=== PATIENT | male | born 1975 | race African-American/Black ===

== ENCOUNTER 2024-12-12 18:10 | Inpatient (IN) | payer MEDICAID ==
[~2024-12-12] VITALS: Ht 175.3 cm; Wt 296.6 kg
[~2024-12-12 18:10] MED LIST: ASPI-1497 PO; COR3 PO; FURO-151 PO; METO50TA95 PO; POTA-203 PO
[2024-12-12 18:18] VITALS: O2SAT 99
[2024-12-12] MEDS ORDERED: SODIUM CHLORIDE 0.9% (SEPSIS BOLUS) IV ONE (18:45)
[2024-12-12] MEDS: SODIUM CHLORIDE 0.9% 1,000 ML IV ONE (19:00)
[2024-12-12] MEDS: PIPERACILLIN/TAZO 3.375G/50ML 50 ML IV ONE (19:10)
[2024-12-12 19:12] LABS: BASOPHILS % 0.5 % (0.0-2.0); EOSINOPHILS % 0.2 % (0.0-5.0); HEMATOCRIT. 39.9 % (42.0-52.0); HEMOGLOBIN. 12.8 g/dL (14.0-18.0); LYMPHOCYTES % 7.8 % (20.0-50.0); MEAN PLATELET VOLUME 8.5 fl (7.4-10.4); MONOCYTES % 3.2 % (2.0-8.0); NEUTROPHILS % 88.3 % (40.0-76.0); PLATELET 187 x1000/uL (130-400); RED BLOOD CELL COUNT 4.51 mill/uL (4.7-6.1); RED CELL DISTRIBUTION WIDTH 15.0 % (11.6-14.6)
[2024-12-12 19:21] LABS: INR 1.5
[2024-12-12 19:33] LABS: CREATININE 1.8 mg/dL (0.6-1.3)
[2024-12-12 19:34] LABS: UREA NITROGEN BLOOD 13 mg/dL (9-23)
[2024-12-12 19:35] LABS: ASPARTATE AMINOTRANSFERASE 42 IU/L (<34)
[2024-12-12 19:36] LABS: BILIRUBIN DIRECT 0.8 mg/dL (<=3.0); BILIRUBIN TOTAL 1.9 mg/dL (0.1-1.0); PROTEIN TOTAL 7.4 g/dL (6.0-8.3)
[2024-12-12] MEDS: VANCOMYCIN 1G PREMIX 200 ML IV ONE (19:54)
[2024-12-12 21:17] LABS: CLARITY URINE TURBID (CLEAR); COLOR URINE ORANGE (YELLOW); GLUCOSE URINE NEGATIVE (NEGATIVE); KETONES URINE TRACE (NEGATIVE); LEUKOCYTE ESTERASE URINE 2+ (NEGATIVE); NITRITE URINE POSITIVE (NEGATIVE); OCCULT BLOOD URINE TRACE (NEGATIVE); PH URINE 5.0 (4.5-8.0); PROTEIN URINE 2+ (NEGATIVE); SPECIFIC GRAVITY URINE 1.031 (1.005-1.030); UROBILINOGEN URINE 2.0 E.U./dL (0.2-1.0)
[2024-12-12 21:37] LABS: BACTERIA URINE 4+; RBC URINE 0-2 /hpf (0-2); SQUAMOUS EPITHELIAL CELL URINE 1+ /lpf (RARE/1+); WBC URINE 25-50 /hpf (0-2)
[2024-12-12] MEDS ORDERED: DOCUSATE SODIUM 100MG CAPSULE PO PRN (22:30)
[2024-12-12] MEDS ORDERED: CLONIDINE 0.1MG TABLET PO PRN (22:30)
[2024-12-12] MEDS ORDERED: MAGNESIUM/ALUMINUM HYDROXIDE/SIMETHICONE 30ML UDC PO PRN (22:30)
[2024-12-12] MEDS ORDERED: ONDANSETRON HCL 4MG/2ML INJ IV PRN (22:30)
[2024-12-12] MEDS ORDERED: IPRATROPIUM/ALBUTEROL 0.5-3(2.5)MG/3ML NEB HHN PRN (22:30)
[2024-12-12] MEDS ORDERED: GUAIFENESIN 200MG/10ML SUGAR FREE UDC PO PRN (22:30)
[2024-12-12] MEDS ORDERED: ACETAMINOPHEN 325MG TABLET PO PRN (22:30)
[2024-12-12 23:42] VITALS: BP 145/73; PULSE 101; RESP 15; TEMP 36.696
[2024-12-13] VITALS (17 sets, daily range): BP systolic 107–135; BP diastolic 50–95; PULSE 92–112; RESP 14–30; TEMP 37.1–38.1; O2SAT 88–100
[2024-12-13] MEDS: VANCOMYCIN 1.75GM PMX (XELLIA) 350 ML IV NR (01:39)
[2024-12-13 01:49] LABS: BG BASE EXCESS 3.7 mmol/L (-2.0-3.0); BG CARBOXYHEMOGLOBIN 1.6 % (0.5-1.5); BG DEOXYHEMOGLOBIN 6.5 % (0.0-5.0); BG FRACTION INSPIRED OXYGEN 21; BG HCO3 ACT 28.6 mmol/L (21.0-28.0); BG METHEMOGLOBIN 0.3 % (0.5-1.5); BG OXYGEN SATURATION 93.4 % (94.0-98.0); BG OXYHEMOGLOBIN 91.6 % (94.0-98.0); BG PCO2 44.3 mmHg (35.0-48.0); BG PH 7.428 (7.350-7.450); BG PO2 66.2 mmHg (83.0-108.0); BG SAMPLE SITE LEFT RADIAL; BG TIDAL VOLUME(mL) 875.0 mL; BG TOTAL HEMOGLOBIN 14.8 g/dL (13.5-17.5); BG TOTAL RESPIRATORY RATE 26 b/min
[2024-12-13 01:56] LABS: BG VENT MODE HOME VENT
[2024-12-13 04:41] LABS: HEMATOCRIT. 34.7 % (42.0-52.0); HEMOGLOBIN. 11.4 g/dL (14.0-18.0); MEAN PLATELET VOLUME 8.4 fl (7.4-10.4); PLATELET 152 x1000/uL (130-400); RED BLOOD CELL COUNT 3.99 mill/uL (4.7-6.1); RED CELL DISTRIBUTION WIDTH 14.8 % (11.6-14.6)
[2024-12-13 04:56] LABS: CREATININE 1.3 mg/dL (0.6-1.3); TRIGLYCERIDE 154 mg/dL (0-150); UREA NITROGEN BLOOD 14 mg/dL (9-23)
[2024-12-13 04:57] LABS: LDL CHOLESTEROL 79 mg/dL (5-100)
[2024-12-13] MEDS: PIPERACILLIN/TAZO 3.375G/50ML 50 ML IV SCH (05:52)
[2024-12-13] MEDS ORDERED: VANCOMYCIN 1.25GM/250ML 250 ML IV SCH (09:00)
[2024-12-13] MEDS: FAMOTIDINE 20MG/2ML VIAL IV SCH (10:01)
[2024-12-13] MEDS: FUROSEMIDE 100MG/10ML VIAL IVP SCH (10:01)
[2024-12-13] MEDS: POTASSIUM CHLORIDE 20MEQ TABLET SR PO NR (10:01)
[2024-12-13] MEDS: CARVEDILOL 3.125 MG TABLET PO SCH (10:02)
[2024-12-13] MEDS: ASPIRIN 81MG EC TABLET PO SCH (10:02)
[2024-12-13 13:53] LABS: VITAMIN B12 SERUM 478 pg/mL (211-911)
[2024-12-13] MEDS: ACETAMINOPHEN 325MG TABLET PO PRN (13:59)
[2024-12-13 14:16] LABS: BAND% 27.0 % (1.0-6.0); EOSINOPHILS % MANUAL 2.0 % (0.0-5.0); LYMPHOCYTES % MANUAL 9.0 % (20.0-50.0); MONOCYTES % MANUAL 3.0 % (2.0-8.0); NEUTROPHILS % MANUAL 59.0 % (45.0-75.0); PLATELET ESTIMATE NORMAL
[2024-12-13] MEDS: VANCOMYCIN 1.25GM/250ML 250 ML IV SCH ×2 (14:49→21:42)
[2024-12-13] MEDS: KETOROLAC 15MG/ML VIAL IV PRN (18:59)
[2024-12-14] VITALS (13 sets, daily range): BP systolic 94–135; BP diastolic 52–85; PULSE 85–102; RESP 12–34; TEMP 36.1–37.1; O2SAT 93–98
[2024-12-14] MEDS ORDERED: LIDOCAINE HCL 1% 10 MG/ML 10ML VIAL ONE ×2 (07:52→08:24)
[2024-12-14 10:59] LABS: BASOPHILS % 0.2 % (0.0-2.0); EOSINOPHILS % 1.8 % (0.0-5.0); HEMATOCRIT. 31.3 % (42.0-52.0); HEMOGLOBIN. 10.3 g/dL (14.0-18.0); LYMPHOCYTES % 12.8 % (20.0-50.0); MEAN PLATELET VOLUME 8.7 fl (7.4-10.4); MONOCYTES % 8.8 % (2.0-8.0); NEUTROPHILS % 76.4 % (40.0-76.0); PLATELET 161 x1000/uL (130-400); RED BLOOD CELL COUNT 3.63 mill/uL (4.7-6.1); RED CELL DISTRIBUTION WIDTH 14.8 % (11.6-14.6)
[2024-12-14 11:09] LABS: CREATININE 1.0 mg/dL (0.6-1.3); TRIGLYCERIDE 185 mg/dL (0-150); UREA NITROGEN BLOOD 15 mg/dL (9-23)
[2024-12-14 11:10] LABS: LDL CHOLESTEROL 82 mg/dL (5-100)
[2024-12-14 11:14] LABS: T4 FREE 1.07 ng/dL (0.89-1.76)
[2024-12-14] MEDS ORDERED: IBUPROFEN 800MG TABLET PO PRN (15:15)
[2024-12-14] MEDS ORDERED: NALOXONE HCL 0.4MG/ML VIAL IV PRN (15:45)
[2024-12-14] MEDS: HYDROCODONE/ACETAMINOPHEN 7.5/325MG TABLET PO PRN (17:04)
[2024-12-14 17:13] LABS: CREATINE KINASE MB FRACTION < 0.5 ng/mL (0.5-3.6); TROPONIN I HIGH SENSITIVITY 8 ng/L (3.0-53)
[2024-12-14] MEDS: ENOXAPARIN 40MG/0.4ML SYR SUBCUT SCH (21:30)
[2024-12-15] VITALS (18 sets, daily range): BP systolic 115–178; BP diastolic 57–80; PULSE 70–94; RESP 9–31; TEMP 36.3–37.7; O2SAT 91–96
[2024-12-15 00:27] LABS: CREATINE KINASE MB FRACTION 0.5 ng/mL (0.5-3.6); TROPONIN I HIGH SENSITIVITY 8.0 ng/L (3.0-53)
[2024-12-15 06:55] LABS: CREATINE KINASE MB FRACTION 0.6 ng/mL (0.5-3.6)
[2024-12-15 06:56] LABS: CREATININE 1.0 mg/dL (0.6-1.3); TROPONIN I HIGH SENSITIVITY 8 ng/L (3.0-53); UREA NITROGEN BLOOD 13 mg/dL (9-23)
[2024-12-15 06:58] LABS: PHOSPHORUS 3.3 mg/dL (2.5-4.9)
[2024-12-15 09:07] LABS: FOLATE HEMATOCRIT 36.1 % (37.5-51.0)
[2024-12-15] MEDS: FUROSEMIDE 40MG/4ML VIAL IVP SCH (09:23)
[2024-12-15] MEDS ORDERED: LEVO-65 MT (16:49)
[2024-12-16 09:09] LABS: FOLATE HEMOLYSATE 248.0 ng/mL (Not Estab.); FOLATE RBC 687 ng/mL (>498)
== END 2024-12-15 23:58 | disposition home or self-care (01) | DRG 720 ==
LOC: ER 18:10 → 5EST 21:23 → EDBEDREQTM 21:30 → EDBEDREQ 21:30 → ENRESERV 22:11
PROVIDERS: ADMIT Internal Medicine; ATTEND Internal Medicine
PROC: 5A09357 Assistance with Respiratory Ventilation, Less than 24 Consecutive Hours, Continuous Positive Airway Pressure (ICD-10-PCS; 2024-12-12)
PROC: 5A1935Z Respiratory Ventilation, Less than 24 Consecutive Hours (ICD-10-PCS; principal; 2024-12-13)
PROC: 5A09357 Assistance with Respiratory Ventilation, Less than 24 Consecutive Hours, Continuous Positive Airway Pressure (ICD-10-PCS; 2024-12-13)
PROC: 5A1945Z Respiratory Ventilation, 24-96 Consecutive Hours (ICD-10-PCS; 2024-12-14)
PROC: 05H533Z Insertion of Infusion Device into Right Subclavian Vein, Percutaneous Approach (ICD-10-PCS; 2024-12-14)
PROC: B546ZZA Ultrasonography of Right Subclavian Vein, Guidance (ICD-10-PCS; 2024-12-14)
DX: A41.9 Sepsis, unspecified organism (principal); Z99.11 Dependence on respirator [ventilator] status; Z93.0 Tracheostomy status; I13.0 Hypertensive heart and chronic kidney disease with heart failure and stage 1 through stage 4 chronic kidney disease, or unspecified chronic kidney disease; I50.9 Heart failure, unspecified; J96.11 Chronic respiratory failure with hypoxia; E66.01 Morbid (severe) obesity due to excess calories; D64.9 Anemia, unspecified; G47.33 Obstructive sleep apnea (adult) (pediatric); N39.0 Urinary tract infection, site not specified; N18.9 Chronic kidney disease, unspecified; L03.115 Cellulitis of right lower limb; N17.9 Acute kidney failure, unspecified; J18.9 Pneumonia, unspecified organism; J44.0 Chronic obstructive pulmonary disease with (acute) lower respiratory infection; D72.810 Lymphocytopenia; Z79.82 Long term (current) use of aspirin; Z79.899 Other long term (current) drug therapy; Z68.45 Body mass index [BMI] 70 or greater, adult
CPT/HCPCS: 36415; 36573; 36600; 71045; 73590; 80048; 80061; 80076; 80202; 81003; 82375; 82550; 82553; 82607; 82728; 82747; 82805; 83036; 83540; 83550; 83605; 83735; 83880; 84100; 84145; 84439; 84443; 84484; 85014; 85025; 85379; 93005; 93970; 94070; 96365; 96367; 99291; A4606; C1725; C1769; J1308; J1650; J1885; J1938; J2003; J2543; J3373; J7030